=== PATIENT | female | born 1980 | race Caucasian/White ===

== ENCOUNTER 2025-05-30 18:53 | Emergency (ER) | payer BC, SELFPAY ==
--- OUTSIDE RECORDS SUMMARY | 2025-05-30 18:56 | XMS_ITS | Encounter Summary ---
Author Organization [facility] Medical Group Address [address] [facility] [address] [place] [address] Care Team Providers Care Inspector And Clerk Name Role Phone Stanley Arizmendi MD Primary Care Provider [phone] Alberto Perdomo MD Unavailable [phone] Renan Blackwood MD Unavailable [phone] Chad Junior MD Unavailable [phone] Tay Lopez MD Unavailable [phone] Myah Adams MD Unavailable [phone] Rojas Pelletier DO Unavailable Jak Ledezma MD Unavailable Alberto Perdomo MD Unavailable [phone] Encounter Details Date Type Department Care Team (Late st Contact Info) Description 10/24/2016 Orders Only 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 us Historical Provider MD CV CARDIAC SERVICES PROCE DURES Final Result * CARDIOLOGY REPORT (10/24/2016) Anatomical Region Laterality Modality Other Narrative 10/24/2016 Ordered by an unspecified provider. Historical Provider CV CARDIAC SERVICES PROCE DURES Final Result documented in this encounter Visit Diagnoses Not on filedocumented in this encounter Care Teams Inspector And Clerk Relationship Specialty Start Date End Date Stanley Arizmendi MD [address] [facility] [address] [place] [address] PCP - General 02/10/13 Alberto Perdomo MD [address] [facility] 100 [place] [address] Referring Physician Psychiatry 08/29/20 Renan Blackwood MD [address] [place] [address] DR BOBBY Cabezas [facility] [address] [place] [address] Surgeon Orthopedic Surgery 08/29/20 Chad Junior MD [address] [facility] 301 [place], [place] [address] Referring Physician Obstetrics and Gynecology 08/09/21 Tay Lopez MD [address] [facility] [address] [place] [address] Consulting Physician Rheumatology 08/09/21 Myah Adams MD [address] [facility] 200 [place] [address] Referring Physician Neurology 08/09/21 [place] [address] [address] [place] [address] Consulting Physician Gastroenterology 08/09/21 [place] [address] [address] [place] [address] Consulting Physician Critical Care Med 08/09/21 Alberto Perdomo MD [address] [facility] 100 [place] [address] Referring Physician Psychiatry 08/09/21 02/05/22 documented as of this encounter
--- OUTSIDE RECORDS SUMMARY | 2025-05-30 18:56 | XMS_ITS | Encounter Summary ---
Author Organization [facility] Address [address] [place] [address] Phone Care Team Providers Care Trucker Name Role Phone KyleighStanley varela Jeanne CARRILLO Primary Care Provider [phone] Alberto Perdomo MD Unavailable [phone] Renan Blackwood MD Unavailable Chad Junior MD Unavailable [phone] Tay Lopez MD Unavailable [phone] Myah Adams MD Unavailable [phone] Rojas Pelletier DO Unavailable [phone] Jak Ledezma MD Unavailable Alberto Perdomo MD Unavailable [phone] Encounter Details Date Type Department Care Team (Late st Contact Info) Description 01/25/2022 Orders Only [facility] [address] [place] [address] Scanning, Provider Social History Tobacco Use Types Packs/Day Years Used Date Smoking Tobacco: Former Cigarettes 0.5 23.6 1 99 - 01/2019 E-cigarettes Smokeless Tobacco: Never Alcohol Use Standard Drinks/Week Comments Yes 0 (1 standard drink = 0.6 oz pur e alcohol) 1-2 drinks per month Comments Unknown Sex and Gender Information Value Date Recorded Sex Assigned at Not on file 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 Author CCM Chronic Pain Care Plan Chronic Care Management Worsening( 9:43 AM CHOP SAW OPERATOR) Cristina Tejeda RN Note: Problem: Chronic Pain Goals: 1. Minimize further functional decline 2. Maximize quality of life 3. Control pain Strategies: - Activity/exercise program recommendation - Conservative stepwise pain medicine strategy with multi-disciplinary approach - Recommend healthy lifestyle strategies and compensatory methods as needed documented as of this encounter Procedures Procedure Name Priority Date/Time Associated Diagnosis Comments SCAN - LABS 01/25/2022 documented in this encounter Results * SCAN - LABS (01/25/2022) us Provider Scanning Final Result documented in this encounter Visit Diagnoses Not on filedocumented in this encounter Care Teams Trucker Relationship Specialty Start Date End Date Stanley Arizmendi MD [address] [facility] [address] [place] [address] PCP - General 02/10/13 Alberto Perdomo MD [address] [facility] 100 [place] [address] Referring Physician Psychiatry 08/29/20 Renan Blackwood MD [address] [place] [address] [address] BOBBY Cabezas [facility] [address] [place] [address] Surgeon Orthopedic Surgery 08/29/20 Chda Junior MD [address] [facility] 301 [place], [place] [address] Referring Physician Obstetrics and Gynecology 08/09/21 Tay Lopez MD [address] [facility] [address] [place] [address] Consulting Physician Rheumatology 08/09/21 Myah Adams MD [address] [facility] 200 [place] [address] Referring Physician Neurology 08/09/21 [place] [address] [address] [place] [address] Consulting Physician Gastroenterology 08/09/21 [place] [address] [address] [place] [address] Consulting Physician Critical Care Med 08/09/21 Alberto Perdomo MD [address] [facility] 100 [place] [address] Referring Physician Psychiatry 08/09/21 02/05/22 documented as of this encounter
--- OUTSIDE RECORDS SUMMARY | 2025-05-30 18:56 | XMS_ITS | Encounter Summary ---
Author Organization [facility] Address [address] [place] [address] Phone Care Team Providers Care Travel Guide Name Role Phone KyleighStanley varela Jeanne CARRILLO Primary Care Provider [phone] Alberto Perdomo MD Unavailable [phone] Renan Blackwood MD Unavailable Chad Junior MD Unavailable Tay Lopez MD Unavailable [phone] Myah Adams MD Unavailable [phone] Rojas Pelletier DO Unavailable Jak Ledezma MD Unavailable Alberto Perdomo MD Unavailable [phone] Encounter Details Date Type Department Care Team (Late st Contact Info) Description 07/10/2021 Orders Only [facility] [address] [place] [address] Scanning, Provider Social History Tobacco Use Types Packs/Day Years Used Date Smoking Tobacco: Former Cigarettes 0.5 23.6 1 - 01/2019 E-cigarettes Smokeless Tobacco: Never Alcohol Use Standard Drinks/Week Comments Yes 0 (1 standard drink = 0.6 oz pur e alcohol) 1-2 drinks per month Comments Unknown Sex and Gender Information Value Date Recorded Sex Assigned at Not on file 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 Author CCM Chronic Pain Care Plan Chronic Care Management Worsening( 9:43 AM HVAC SHEET METAL INSTALLER) Cristina Tejeda RN Note: Problem: Chronic Pain Goals: 1. Minimize further functional decline 2. Maximize quality of life 3. Control pain Strategies: - Activity/exercise program recommendation - Conservative stepwise pain medicine strategy with multi-disciplinary approach - Recommend healthy lifestyle strategies and compensatory methods as needed documented as of this encounter Procedures Procedure Name Priority Date/Time Associated Diagnosis Comments GI - RESULT 07/10/2021 documented in this encounter Results * GI - RESULT (07/10/2021) Anatomical Region Laterality Modality Other us Provider Scanning Final Result documented in this encounter Visit Diagnoses Not on filedocumented in this encounter Care Teams Travel Guide Relationship Specialty Start Date End Date Stanley Arizmendi MD [address] [place] [address] PCP - General 02/10/13 Alberto Perdomo MD [address] [facility] 100 [place] [address] Referring Physician Psychiatry 08/29/20 Renan Blackwood MD [address] [facility] [address] BOBBY Cabezas [facility] 130 [place] [address] Surgeon Orthopedic Surgery 08/29/20 Chad Junior MD [address] [facility] [address] [place] [address] Referring Physician Obstetrics and Gynecology 08/09/21 Tay Lopez MD [address] [facility] 113 [place] [address] Consulting Physician Rheumatology 08/09/21 Myah Adams MD [address] [facility] 200 [place] [address] Referring Physician Neurology 08/09/21 [place] [address] [address] [place] [address] Consulting Physician Gastroenterology 08/09/21 [place] [address] [address] [place] [address] Consulting Physician Critical Care Med 08/09/21 Alberto Perdomo MD [address] [facility] 100 [place] [address] Referring Physician Psychiatry 08/09/21 02/05/22 documented as of this encounter
--- OUTSIDE RECORDS SUMMARY | 2025-05-30 18:56 | XMS_ITS | Encounter Summary ---
Author Organization [facility] Health Address [address] [place] [address] Care Team Providers Care Admissions Supervisor Name Role Phone Kyleigh Stanley Angel MD Primary Care Provider [phone] Myah Adams MD Unavailable [phone] Jak Ledezma MD Unavailable Encounter Details Date Type Department Care Team (Late st Contact Info) Description 01/19/2025 Lab Requisition [facility] - DermPath Lab [address] [place] [phone] [place] [address] [address] Social History Tobacco Use Types Packs/Day Years Used Date Smoking Tobacco: Former Cigarettes 0.5 20.1 1 07/20/1998 - 07/01/2019 Smokeless Tobacco: Never Alcohol Use Standard Drinks/Week Comments Not Currently 1 (1 standard drink = 0.6 oz pur e alcohol) Comments No Sex and Gender Information Value Date Recorded Sex Assigned at Female 04/12/2023 4:27 PM CDT Legal Sex Female 6:19 PM PUBLIC RELATIONS MANAGER Gender Identity Female 09/15/2020 7:37 AM CDT Sexual Orientation Straight 09/15/2020 7: 37 AM CDT 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 Not on file Not on file documented as of this encounter Plan of Treatment Upcoming Encounters Date Type Department Care Team (Late st Contact Info) Description 11/04/2025 2:00 PM CDT Office Visit [facility] [address] [place] [address] Phuc Ale Ese, PAVING INSPECTOR-URGENT CARE PHYSICIAN ASSISTANT [address] [place] [phone] 05/24/2026 2:00 PM PUBLIC RELATIONS MANAGER Office Visit [facility] - Pulmonology [address] [facility] [address] [place] [address] [place] [address] [facility] [address] [place] [address] documented as of this encounter Procedures Procedure Name Priority Date/Time Associated Diagnosis Comments DERMATOPATHOLOGY Routine 01/18/2025 12:0 0 AM CDT documented in this encounter Results * DERMATOPATHOLOGY (01/18/2025 12:00 AM CDT) Case Report Dermatopathology Report Case: [id number] Authorizing Provider: Delmar Covington MD Collected: 01/18/2025 12:00 AM Ordering Location: [facility] - Received: 01/20/2025 06:49 AM DermPath Lab Pathologist: Ese Chris MD Specimen: Skin, right dorsal hand 6:25 PM CDT DERMATOPATHOLOGY LABORATORY Final Diagnosis Specimen A. SKIN, right dorsal hand: CHRONIC SPONGIOTIC DERMATITIS (L30.8) (see microscopic description and comment) 5 6:25 PM CDT DERMATOPATHOLOGY LABORATORY at 1829 CDT Clinical History Rash; R/O Eczema, Contact Dermatitis, Connective Tissue Disease 5 6:25 PM CDT DERMATOPATHOLOGY LABORATORY Gross Description Specimen A: Received is one formalin filled container labeled with the patient's name and designated right dorsal hand. The specimen consists of a punch biopsy measuring 4x4x2 mm. Jar 0. 5 6:25 PM CDT DERMATOPATHOLOGY LABORATORY Microscopic Description Specimen A. SKIN, right dorsal hand: There is focal parakeratosis and mild spongiosis of the epidermis. In the dermis there is a mainly superficial perivascular lymphoid infiltrate. Grocott's methenamine silver (GMS) stain fails to highlight fungal elements in the available sections. COMMENT: These histological findings can be seen in an eczematous dermatitis. 6:25 PM CDT DERMATOPATHOLOGY LABORATORY Disclaimer An external and internal positive and negative controls are appropriate for the histochemical, immunohistochemical and immunofluorescence stain(s) in this case (if any), except where stated explicitly. The performance characteristics of the stain(s) cited in this report were developed and its performance characteristic determined by the Dermatopathology Laboratory at [facility], directed by Dr. Aaliyah Chris. These tests need not be, and therefore are not, approved by the [place] Food and Drug Administration. The tests are used for clinical purposes. Billing Codes Specimen Charges Stain Charges 57025 1 36803 1 6:25 PM CDT DERMATOPATHOLOGY LABORATORY Embedded Images 6:25 PM CDT DERMATOPATHOLOGY LABORATORY Pathology/Cytolog y TISSUE SPECIMEN FROM SKIN / Unknown 01/18/2025 01/20/2025 6:49 AM CDT Delmar Covington MD LAB - PATHOLOGY/CYTOLOGY O RDERABLES Final Result DERMATOPATHOLOGY LABORATORY [facility] - Department of Dermatology [facility] Medicine [address] [place] [address], [address] [phone] documented in this encounter Visit Diagnoses Not on filedocumented in this encounter Care Teams Admissions Supervisor Relationship Specialty Start Date End Date Stanley Arizmendi MD [address] [place] [phone] PCP - General 05/03/11 Myah Adams MD [address] [place] [address] Neurologist Neurology 11/08/20 [place] [address] [facility] [address] [place] [address] Roustabout Pusher Pulmonary Disease 01/03/21 documented as of this encounter
--- OUTSIDE RECORDS SUMMARY | 2025-05-30 18:56 | XMS_ITS | Clinical Summary ---
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 Laboratories [place] [id number] * Screening Mammogram Bilateral W Constantino (10/06/2024 10:39 AM CDT) Anatomical Region Laterality Modality Breast Bilateral Mammography 10/06/2024 11:2 5 AM CDT Impressions 10/06/2024 11:25 AM CDT There is no mammographic evidence of malignancy. A 1 year screening mammogram is recommended. BI-RADS: 1 - Negative. The patient has been or will be contacted. The patient will be entered into a reminder system with a target due date of 1 year for her next mammogram. Electronically signed by: Yoan Stanley M.D. Narrative 10/06/2024 11:25 AM CDT EXAMINATION: SCREENING MAMMOGRAM BILATERAL W CONSTANTINO ORDERING HEALTHCARE PROVIDER: STANLEY ARIZMENDI HISTORY: Routine screening mammography. COMPARISON: 08/27/2023 TECHNIQUE: CC and MLO views of the bilateral breasts were obtained with digital technique using breast tomosynthesis with C view. Computer aided detection was utilized. FINDINGS: DENSITY: There are scattered areas of fibroglandular density. BREASTS: A loop recorder is present on the left. There are no suspicious masses, suspicious calcifications, or other suspicious findings in either breast. There has been no suspicious interval change. Stanley Arizmendi MD IMG MAMMO PROCEDURES Final Result * Serum Hepatitis panel (08/04/2013 7:47 AM SUPERVISOR FELTING) HBV surface ag Negative Negative HISTO RICAL RESULTS HBV core ab, IgM Negative Negative HISTORICAL RESULTS HCV ab Negative Negative HISTORICAL RESULTS HAV ab, IgM Negative Negative HISTORIC AL RESULTS Serum 08/04/2013 7:47 AM SUPERVISOR FELTING Stanley Arizmendi MD LAB BLOOD ORDERABLES Final Result HISTORICAL RESULTS from Last 3 Months or Most Recently Relevant to Health Maintenance Insurance [facility] [id number] [facility] [id number] [facility] Advance Directives For more information, please contact: [phone] * Full Code (Latest Code Status on File) Date Activated Date Inactivated Comments 12/11/2019 11:15 AM 12/11/2019 5:06 PM Care Teams Golf Course Designer Relationship Specialty Start Date End Date Stanley Arizmendi MD [address] [place] [address] PCP - General 02/10/13 Alberto Perdomo MD [address] [facility] 100 [place] [address] Referring Physician Psychiatry 08/29/20 Renan Blackwood MD [address] [place] [address] DR BOBBY Cabezas [facility] [address] [place] [address] Surgeon Orthopedic Surgery 08/29/20 Chad Junior MD [address] [facility] [address] [place] [address] Referring Physician Obstetrics and Gynecology 08/09/21 Tay Lopez MD [address] [facility] [address] [place] [address] Consulting Physician Rheumatology 08/09/21 Myah Adams MD [address] [facility] [place] 200 [place], [place] [id number] Referring Physician Neurology 08/09/21 [place] [address] [address] [place] [id number] Consulting Physician Gastroenterology 08/09/21 [place] [address] [place] [address] Consulting Physician Critical Care Med 08/09/21
--- OUTSIDE RECORDS SUMMARY | 2025-05-30 18:56 | XMS_ITS | Encounter Summary ---
Author Organization [facility] Healthcare Address [address] [place] [address] Care Team Providers Care Document Control Clerk Name Role Phone KyleighStanley MD Primary Care Provider [phone] Alberto Perdomo MD Unavailable [phone] Renan Blackwood MD Unavailable [phone] Chad Junior MD Unavailable [phone] Tay Lopez MD Unavailable [phone] Myah Adams MD Unavailable [phone] Rojas Pelletier DO Unavailable Jak Ledezma MD Unavailable Encounter Details Date Type Department Care Team (Late st Contact Info) Description 09/18/2022 Telephone [facility] [address] [place] [address] Tanesha Sosa RT Social History Tobacco Use Types Packs/Day Years Used Date Smoking Tobacco: Former Cigarettes 0.5 23.6 1 - 01/2019 E-cigarettes Smokeless Tobacco: Never Alcohol Use Standard Drinks/Week Comments Yes 0 (1 standard drink = 0.6 oz pur e alcohol) 1-2 drinks per month PHQ-2 Answer Date Recorded PHQ-2 Total Score (If total score is 3 or more points, staff should administer the PHQ-9) 0 02/06/2022 Comments Unknown Sex and Gender Information Value Date Recorded Sex Assigned at Not on file Legal Sex Female 12:35 PM VACUUM WORKER Gender Identity Not on file Sexual Orientation Straight 08/24/2019 7: 38 PM VACUUM WORKER documented as of this encounter Plan of Treatment Not on file documented as of this encounter Goals Goal Patient Goal Type Associated Problems Recent Progress Patient-Stated? Author CCM Chronic Pain Care Plan Chronic Care Management Worsening( 9:43 AM VACUUM WORKER) Cristina Tejeda, RN Note: Problem: Chronic Pain Goals: 1. Minimize further functional decline 2. Maximize quality of life 3. Control pain Strategies: - Activity/exercise program recommendation - Conservative stepwise pain medicine strategy with multi-disciplinary approach - Recommend healthy lifestyle strategies and compensatory methods as needed documented as of this encounter Visit Diagnoses Not on filedocumented in this encounter Care Teams Document Control Clerk Relationship Specialty Start Date End Date Stanley Arizmendi MD [address] [facility] [address] [place] [address] PCP - General 02/10/13 Alberto Perdomo MD [address] [facility] 100 [place] [address] Referring Physician Psychiatry 08/29/20 Renan Blackwood MD [address] [place] [address] DR ROSALES [address] [facility] [address] [place] [address] Surgeon Orthopedic Surgery 08/29/20 Chad Junior MD [address] [facility] [address] [place], [place] [id number] Referring Physician Obstetrics and Gynecology 08/09/21 Tay Lopez MD 34[address] [facility] [address] [place] [address] Consulting Physician Rheumatology 08/09/21 Myah Adams MD [address] [facility] [facility] [address] [place], [place] [phone] Referring Physician Neurology 08/09/21 [place] [address] [place] [id number] Consulting Physician Gastroenterology 08/09/21 [place] [address] [place] [address] Consulting Physician Critical Care Med 08/09/21 documented as of this encounter
--- OUTSIDE RECORDS SUMMARY | 2025-05-30 18:56 | XMS_ITS | Clinical Summary ---
Author Organization [facility] Address [address] [place] [address] Phone Care Team Providers Care Search Director Name Role Phone Kyleigh Stanley Angel MD Primary Care Provider [phone] Servando Guido MD Unavailable [phone] Allergies Active Allergy Reactions Criticality Noted Date Comments Penicillins Swelling High 10/23/2016 Sulfa Antibiotics Anaphylaxis,Rash,Oth er (see Comments) High 10/23/2016 Patient's eyes swollen shut, blistering, difficulty breathing. Vancomycin Other (see Comments) High 12/25/2021 Guo-Dionte Syndrome Medications ALPRAZolam (XANAX) 0.5 MG Tablet Take 0.5 mg by mouth every morning. Active ALPRAZolam (XANAX) 1 MG Tablet Take 1 mg by mouth nightly as needed. Active famotidine (PEPCID) 20 MG Tablet Take 1 Tab by mouth 2 times daily as needed. 30 Tab 0 7 Active Additional Information Patient taking differently:20 mg Oral2 TIMES DAILY, Reported on 01/14/2024 acetaminophen (TYLENOL) 500 MG Tablet Take 500 mg by mouth every 4 hours as needed. Active buPROPion (WELLBUTRIN) 300 MG TABLET SR 24 HR XL tablet Take 300 mg by mouth every morning. Active cetirizine (ZyrTEC) 10 MG Tablet Take 20 mg by mouth 2 times daily. Active cloNIDine (CATAPRES) 0.1 MG Tablet Take 0.1 mg by mouth 2 times daily. Active diclofenac (VOLTAREN) 75 MG Tablet Delayed Response Take 75 mg by mouth 3 times daily. Active fluticasone (FLONASE) 50 MCG/ACT Suspension 1 [place] by Nasal route daily. Use in each nostril as directed. Active FOLIC ACID PO Take by mouth. A ctive gabapentin (NEURONTIN) 100 MG Capsule Take 100 mg by mouth 2 times daily. Active gabapentin (NEURONTIN) 600 MG Tablet Take 600 mg by mouth nightly. Active golimumab (SIMPONI ARIA) 50 MG/4ML Solution by Intravenous route. Every two weeks Active hydroxychloroqu ine (PLAQUENIL) 200 MG Tablet Take 400 mg by mouth daily. 2 tabs daily Active leflunomide (ARAVA) 10 MG Tablet Take 10 mg by mouth daily. Active methotrexate, PF, (OTREXUP) 25 MG/0.4ML Solution Auto-injector 25 mg by Subcutaneous route once a week. Chemo: Medication requires special safe handling and disposal. Active metoclopramide (REGLAN) 10 MG Tablet Take 10 mg by mouth daily. PRN Active mirtazapine (REMERON) 30 MG Tablet Take 30 mg by mouth nightly. Active Multiple Vitamin (MULTIVITAMIN PO) Take by mouth. Activ e NIFEdipine CR (PROCARDIA-XL) 60 MG TABLET SR 24 HR Take 60 mg by mouth daily. Active olopatadine (Pataday) 0.2 % Solution Place 1 Drop in affected eye(s) daily. Active predniSONE (DELTASONE) 5 MG Tablet Take 5 mg by mouth daily. 3 tabs daily Active propranolol (INDERAL) 10 MG Tablet Take 10 mg by mouth 2 times daily. Active pyridostigmine (MESTINON) 60 MG Tablet Take 60 mg by mouth 3 times daily. Active traMADol (ULTRAM) 50 MG Tablet Take 50 mg by mouth 3 times daily. 2 tablets three times daily Active Viloxazine HCl ER (Qelbree) 200 MG CAPSULE SR 24 HR Take by mouth. Activ e Family History Medical History Relation Name Comments Other-comment Father als Anemia Mother Hypertension Mother Other-comment Mother spondylosis Relation Name Status Comments Father Mother Alive Social History Tobacco Use Types Packs/Day Years Used Date Smoking Tobacco: Former Cigarettes Alcohol Use Standard Drinks/Week Comments Yes 0 (1 standard drink = 0.6 oz pur e alcohol) rarely Comments No Sex and Gender Information Value Date Recorded Sex Assigned at Not on file Legal Sex Female 9:20 PM CDT Gender Identity Not on file Sexual Orientation Not on file Last Filed Vital Signs Vital Sign Reading Time Taken Comments Blood Pressure 110/80 01/14/2024 3:07 PM CDT Pulse 71 01/14/2024 3:07 PM CDT Temperature 36.4 C (97.5 F) 01/14/2024 3:07 PM CDT Respiratory Rate 17 01/14/2024 3:07 PM CDT Oxygen Saturation 95% 01/14/2024 3:07 PM CDT Inhaled Oxygen Concentration - - Weight 77.5 kg (170 lb 12.8 oz) 01/14/2024 3:07 PM CDT Height 167.6 cm (5' 6) 01/14/2024 3:07 PM CDT Body Mass Index 27.57 01/14/2024 3:07 PM CDT Plan of Treatment Health Maintenance Due Date Last Done Comments Hepatitis C Virus (HCV) Screening 1981 TdaP Immunization 1981 SARS-COV-2 Immunization (#1) 1986 Varicella Immunization (1 of 2 - 13+ 2-dose series) 1994 Pap Smear 2002 Human Papillomavirus (HPV) Immunization (1 - Risk 3-dose SCDM series) 2008 Cervical Cancer Screening (CCS) 2011 HPV/Cotest 2011 Mammogram 08/27/2024 08/27/2023 Influenza Immunization (#1) 03/01/202503/31, 03/16/2016, 04/25/2015 Respiratory Syncytial Virus (RSV) Immunization (Adult) (1 - 1-dose 75+ series) 2056 DTaP/Tdap/Td Immunization Discontinued 1995, 10/05/1986, 09/05/1985, Additional history exists Hepatitis B Immunization Completed 999, 06/16/1998, 04/26/1998 Discussion re Starting/Frequency of Mammograms Completed 08/27/2023 Meningococcal Immunization (ACWY) Aged Out No longer eligible based on patient's age to complete this topic Pneumococcal Immunization Combined Aged Out No longer eligible based on patient's age to complete this topic Rotavirus Immunization Aged Out No lo nger eligible based on patient's age to complete this topic Insurance [facility] Care Teams Search Director Relationship Specialty Start Date End Date Stanley Arizmendi MD [address] [place] [address] PCP - General Internal Medicine 10/25/15 Servando Guido MD [address] [facility] [place] [address] Consulting Physician Neurology 01/14/24
--- OUTSIDE RECORDS SUMMARY | 2025-05-30 18:56 | XMS_ITS | Encounter Summary ---
Author Organization [facility] Address [address] [place] [address] Phone Care Team Providers Care Spreader Operator Name Role Phone KyleighStanley varela Jeanne CARRILLO Primary Care Provider [phone] Alberto Perdomo MD Unavailable [phone] Renan Blackwood MD Unavailable Chad Junior MD Unavailable Tay Lopez MD Unavailable [phone] Myah Adams MD Unavailable Rojas Pelletier DO Unavailable Jak Ledezma MD Unavailable Alberto Perdomo MD Unavailable [phone] Encounter Details Date Type Department Care Team (Late st Contact Info) Description 12/21/2020 Orders Only [facility] [address] [place] [address] Scanning, Provider Social History Tobacco [...] on file Legal Sex Female 12:35 PM PAVER LAYER Gender Identity Not on file Sexual Orientation Straight 08/24/2019 7: 38 PM PAVER LAYER documented as of this encounter Plan of Treatment Not on file documented as of this encounter Goals Goal Patient Goal Type Associated Problems Recent Progress Patient-Stated? Author CCM Chronic Pain Care Plan Chronic Care Management Worsening( 9:43 AM PAVER LAYER) Cristina Tejeda RN Note: Problem: Chronic Pain Goals: 1. Minimize further functional decline 2. Maximize quality of life 3. Control pain Strategies: - Activity/exercise program recommendation - Conservative stepwise pain medicine strategy with multi-disciplinary approach - Recommend healthy lifestyle strategies and compensatory methods as needed documented as of this encounter Procedures Procedure Name Priority Date/Time Associated Diagnosis Comments CARDIOLOGY DOCUMENT SCAN 12/21/2020 documented in this encounter Results * SCAN - CARDIOLOGY (12/21/2020) Anatomical Region Laterality Modality Other us Provider Scanning CV CARDIAC SERVICES PROCEDURES Final Result documented in this encounter Visit Diagnoses Not on filedocumented in this encounter Care Teams Spreader Operator Relationship Specialty Start Date End Date Stanley Arizmendi MD [address] [facility] [address] [place] [address] PCP - General 02/10/13 Alberto Perdomo MD [address] [facility] [address] [place] [address] Referring Physician Psychiatry 08/29/20 Renan Blackwood MD [address] [facility] [address] BOBBY Cabezas [facility] [address] [place] [address] Surgeon Orthopedic Surgery 08/29/20 Chad Junior MD [address] [facility] [address] [place], [place] [id number] Referring Physician Obstetrics and Gynecology 08/09/21 Tay Lopez MD [address] [facility] [address] [place] [address] Consulting Physician Rheumatology 08/09/21 Myah Adams MD [address] [facility] [address] [place] [address] Referring Physician Neurology 08/09/21 [place] [address] [address] [place] [phone] Consulting Physician Gastroenterology 08/09/21 [place] [address] [facility] [address] [place] [address] Consulting Physician Critical Care Med 08/09/21 Alberto Perdomo MD [address] [facility] [address] [place] [address] Referring Physician Psychiatry 08/09/21 02/05/22 documented as of this encounter
--- OUTSIDE RECORDS SUMMARY | 2025-05-30 18:57 | XMS_ITS | Clinical Summary ---
Author Organization [facility] [employer] Address [address] [place] [place] [address] Care Team Providers Care Diamond Expert Name Role Phone Kyleigh Stanley Angel MD Primary Care Provider [phone] Myah Adams MD Unavailable [phone] Jak Ledezma MD Unavailable Source Comments [facility],non-owned Affiliates and Associated Physician Practices is amultiple site organization consisting of ambulatory clinics and hospital sitesin [place], [place], [place] and [place]. This disclosure is being madepursuant to the Care Everywhere program and may not contain all information available regarding this patient. Last updated 18.[facility] Allergies Active Allergy Reactions Criticality Noted Date Comments Bactrim Ds Anaphylaxis,Dizzines s,Itching,Palpitat ions,Rash,Shortness of Breath,Skin Reactions,Swelling,Systemic,Urticaria High 01/12/2022 Clindamycin Itching Low 02/11/2012 ., . Penicillins Skin Reactions,Swelling High 11/13/2011 Sulfa Drugs Rash High 11/13/2011 Vancomycin Skin Reactions Medium 10/07/2012 Medications * This document contains information received from the source organization and may not represent a complete record from that organization. * Be aware that medications may not be up to date on this document. Alwaysverify current medications with the patient. ALPRAZolam (XANAX) 0.5 MG tablet Take 1 (one) tablet by mouth 0.5 mg in AM and 0.5 mg at noon and 1 mg bedtime Active cetirizine (ZYRTEC ALLERGY) 10 MG gel capsule Take 2 (two) capsules by mouth 2 times daily Active cloNIDine (CATAPRES) 0.1 MG tablet 1.5 (one and one-half) tablets 2 times daily 0 Active folic acid (FOLVITE) 1 MG tablet Take 1 (one) tablet by mouth once daily 1 Active gabapentin (NEURONTIN) 100 MG capsule 1 (one) capsule 2 times daily 1 Active gabapentin (NEURONTIN) 300 MG capsule 2 (two) capsules at bedtime 1 Active hydroxychloroq uine (PLAQUENIL) 200 MG tablet 1 (one) tablet 2 times daily 1 Active lifitegrast (XIIDRA) 5 % opthalmic solution 2 times daily 1 Active mirtazapine (REMERON) 30 MG tablet Take 1 (one) tablet by mouth every evening 1 Active traMADol (ULTRAM) 50 MG tablet 1 (one) tablet to 2 (two) tablets 3 times daily as needed 1 Active acetaminophen (TYLENOL) 500 MG tablet Take 2 (two) tablets by mouth 3 times daily Maximum allowable Acetaminophen amount = 4 Grams (4000 mg) / 24 hours. Active esomeprazole (NEXIUM) 40 MG capsule Take 1 (one) capsule by mouth daily before breakfast Active fluticasone propionate (FLONASE) 50 MCG/ACT nasal spray [place] 2 (two) sprays into each nostril once daily Active multivitamin daily tablet Take 1 (one) tablet by mouth daily with food Active predniSONE (DELTASONE) 5 MG tablet ONE TO THREE TABELTS BY MOUTH DAILY DIRECTED BY PHYSICIAN 1 Active leflunomide (ARAVA) 10 MG tablet Take 1 (one) tablet by mouth at bedtime 2 Active famotidine (Pepcid) 20 MG tablet Take 1 (one) tablet by mouth 2 times daily 2 Active B-D INS SYR ULTRAFINE 1CC/30G 30G X 1/2 1 ML MISC as needed 3 Active Methotrexate Sodium (methotrexate, PF,) 50 MG/2ML injection 1 mL every 7 days (once a week) 2 Active mupirocin (Bactroban) 2 % ointment as needed 2 Active NIFEdipine CR osmotic 24hr (Procardia-XL) 60 MG tablet at bedtime 3 Active olopatadine (Pataday) 0.2 % ophthalmic solution 1 (one) drop once daily Active diclofenac sodium EC (Voltaren) 75 MG tablet 1 (one) tablet 2 times daily 3 Active metoclopramide (Reglan) 10 MG tablet 1 (one) tablet once daily as needed 3 Active Golimumab (SIMPONI ARIA IV) as directed 1 Active triamcinolone acetonide (Kenalog) 0.1 % ointment Apply to affected area 3 times daily 4 Active pyRIDostigmine (Mestinon) 60 MG tablet TAKE ONE AND a HALF (1 & 1/2) (ONE AND ONE-HALF) TABLETS BY MOUTH THREE (3) TIMES DAILY 405 tablet 3 4 Active propranolol (Inderal) 10 MG tabletIndicati ons:Postural dizziness TAKE ONE (1) (ONE) TABLET BY MOUTH TWO (2) TIMES DAILY 180 tablet 3 5 Active Cromolyn Sodium 100 MG/5ML Take 10 mL by mouth 2 times daily 500 mL 11 5 Active buPROPion SR 12hr (Wellbutrin-SR ) 150 MG tablet Take 1 (one) tablet by mouth 2 times daily Active colestipol (Colestid) 1 GM tablet Take 1 (one) tablet by mouth 2 times daily 5 Active guanFACINE (Tenex) 1 MG tablet Take 1 (one) tablet by mouth at bedtime 90 tablet 4 5 Active tacrolimus (Protopic) 0.1 % ointment Apply to affected area 2 times daily 5 Active Methylphenidat e HCl ER, LA, 60 MG 5 Active vitamin D3 (Cholecalcifer ol) 25 MCG (1000 UNITS) tablet Take 1 (one) tablet by mouth 2 times daily Active cyanocobalamin (Vitamin B-12) injection Inject 1,000 (one thousand) mcg into muscle every 30 days Active Active Problems Problem Noted Date Diagnosed Date Cigarette nicotine dependence in remission 05/26 Postural orthostatic tachycardia syndrome (POTS) 05/26/2024 Mixed connective tissue disease 12/10/2023 Systemic lupus erythematosus 12/10/2023 Pleuritic chest pain 09/17/2023 Allergic rhinitis 09/17/2023 Sjogren's syndrome 05/05/2021 Small fiber neuropathy 05/05/2021 Paroxysmal atrial fibrillation 04/05/2021 Generalized anxiety disorder 04/14/2015 Major depressive disorder, recurrent, moderate 0 09/20/2014 Other diseases of vocal cords 10/08/2012 Other allergy status, other than to drugs and biological substances 10/08/2012 CRPS (complex regional pain syndrome type I) ADHD Mood disorder Ankylosing spondylitis RA (rheumatoid arthritis) Dyspnea on exertion Iron deficiency anemia Encounters Date Type Department Care Team Description 05/25/2025 2:00 PM PAYROLL CONSULTANT Office Visit [facility] - Pulmonology [id number] [address] Atif Dalton DO Mixed connective tissue disease (HCC) (Primary Dx); Systemic lupus erythematosus, unspecified SLE type, unspecified organ involvement status (HCC); Pleuritic chest pain; Allergic rhinitis, unspecified seasonality, unspecified trigger; Postural orthostatic tachycardia syndrome (POTS); Cigarette nicotine dependence in remission from Last 3 Months Immunizations Immunization Administration Dates Next Due INFLUENZA VACCINE, TRIV. (AF LURIA, FLUZONE TRIVALENT; 6MO+) (IIV3) 03/16/2016,04/25/2015 DTP 10/05/1986,,12/04/1982,1981,1981 HEP B VACCINE, PED/ADOL 11/17/1998,06/16/1998, INFLUENZA VACCINE, QUADR. (F LUZONE; FLULAVAL; FLUARIX; AFLURIA QUADRIVALENT; 6MO+), 0.5 ML (IIV4) 04/15/2020 INFLUENZA VACCINE, TRIV. (FL UZONE; FLULAVAL; FLUARIX; AFLURIA TRIVALENT; 6MO+), 0.5 ML (IIV3) 05/26/2024 MMR 11/13/1990,09/15/1982 POLIO OPV 10/05/1986, 4,1981,1981 Td (Adult), 2 Lf Tetanus Tox oid, Adsorbed, Pf 01/07/1996 Family History Medical History Relation Name Comments Ankylosing Spondylitis Brother 1 Other - Cardiac Daughter POTS CAD (Coronary Artery Disease) Father ALS,RA Diabetes - Type 2 Father Hypertension Father Ulcerative Colitis Father High Cholesterol Mother Hypertension Mother COPD Cancer Paternal Grandfather Other Sister 1 UC,HTN Allergy (Severe) Neg Hx CVA Neg Hx Cancer - Breast Neg Hx Cancer - Skin, Melanoma Neg Hx Cancer - Skin, Non Melanoma Neg Hx Eczema Neg Hx Hemophilia Neg Hx Psoriasis Neg Hx Rashes/Skin Problems Neg Hx Relation Name Status Comments Brother 1 Alive Brother 2 Alive Brother 3 Alive Daughter Father Maternal Grandfather Maternal Grandmother Mother Alive Paternal Grandfather Paternal Grandmother Sister 1 Alive Sister 2 Alive Sister 3 Alive Sister 4 Alive Social History Tobacco Use Types Packs/Day Years Used Date Smoking Tobacco: Former Cigarettes 0.5 20.1 1 07/20/1998 - 07/01/2019 Smokeless Tobacco: Never Tobacco Cessation:Counseling Given: Not Answered Alcohol Use Standard Drinks/Week Comments Not Currently 1 (1 standard drink = 0.6 oz pur e alcohol) Comments No Sex and Gender Information Value Date Recorded Sex Assigned at Female 04/12/2023 4:27 PM CDT Legal Sex Female 6:19 PM PAYROLL CONSULTANT Gender Identity Female 09/15/2020 7:37 AM CDT Sexual Orientation Straight 09/15/2020 7: 37 AM CDT 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 Not on file Not on file Last Filed Vital Signs Vital Sign Reading Time Taken Comments Blood Pressure 108/78 05/25/2025 2:08 PM PAYROLL CONSULTANT Pulse 75 05/25/2025 2:08 PM PAYROLL CONSULTANT Temperature 36.5 C (97.7 F) 05/25/2025 2:08 PM PAYROLL CONSULTANT Respiratory Rate 19 05/25/2025 2:08 PM PAYROLL CONSULTANT Oxygen Saturation 98% 05/25/2025 2:08 PM PAYROLL CONSULTANT Inhaled Oxygen Concentration - - Weight 65.3 kg (144 lb) 05/25/2025 2:08 PM PAYROLL CONSULTANT Height 167.6 cm (5' 6) 05/25/2025 2:08 PM PAYROLL CONSULTANT Body Mass Index 23.24 05/25/2025 2:08 PM PAYROLL CONSULTANT Plan of Treatment Upcoming Encounters Date Type Department Care Team (Late st Contact Info) Description 11/04/2025 2:00 PM CDT Office Visit [facility] [address] [place], [place] [id number] Ale Friend, [employer] [address] [place] [id number] 05/24/2026 2:00 PM PAYROLL CONSULTANT Office Visit [facility] - Pulmonology [address] [facility] [address] [place] [address] [place] [address] [facility] [address] [place] [id number] Health Maintenance Due Date Last Done Comments LIPID TESTING 1981 COVID-19 VACCINE (#1) 1986 DTAP/TDAP/TD VACCINES (6 - Tdap) 01/08/1996 01/07/1996, 10/05/1986, 09/05/1985, Additional history exists HIV SCREENING 1996 Cervical Cancer Screening 2002 PAP SMEAR 2002 HPV VACCINE (1 - 3-dose SCDM series) 2008 PAP with HPV 2011 DEPRESSION SCREENING 07/01/2024 INFLUENZA VACCINE (#1) 2025 , 04/15/2020, 03/16/2016, Additional history exists MAMMOGRAM 10/06/2026 10/06/2024, 01/2025, 08/27/2023, Additional history exists ZOSTER VACCINE (1 of 2) 2031 HEPATITIS B VACCINE Completed 11/17/1998, 06/16/1998, 04/26/1998 HEPATITIS C SCREENING Completed 05/28/2011 HIB VACCINE Aged Out No longer eligi ble based on patient's age to complete this topic MENINGOCOCCAL (Group B) VACCINE SHARED DECISION-MAKING Aged Out No longer eligible based on patient's age to complete this topic MENINGOCOCCAL GROUPS A/C/Y/W VACCINE Aged Out No longer eligible based on patient's age to complete this topic PNEUMOCOCCAL VACCINE Aged Out No long er eligible based on patient's age to complete this topic Medical Devices Implanted Type Area Sour Bleaching Pleater Device Identifier Shelf Expiration Date Model / Serial / Lot Loop Recorder-3/08/2021 Implanted:Qt y: 1 on 09/20/2021 by Rio Ott MD Loop Recorder Chest [email or web address] [id number] / [id number] / Neuro Stimulator- Implanted:Qt y: 1 on 09/22/2021 by Rio Ott MD Neuro Stimulator Buttocks [employer] [id number] / [id number] / Neuro Stimulator- Implanted:Qt y: 1 on 09/22/2021 by Rio Ott MD Neuro Stimulator Spine Lumbar [employer] [id number] / [id number] / Neuro Stimulator- Implanted:Qt y: 1 on 09/22/2021 by Rio Ott MD Neuro Stimulator [employer] [id number] / [id number] / Procedures Procedure Name Priority Date/Time Associated Diagnosis Comments HEPATITIS C ANTIBODY Routine 05/28/2011 10:50 AM PAYROLL CONSULTANT from Last 3 Months or Most Recently Relevant to Health Maintenance Results * HEPATITIS C ANTIBODY (05/28/2011 10:50 AM PAYROLL CONSULTANT) [facility] Hepatitis C Antibody NEGATIVE NEGATIVE [facility] Comment: Anti-HCV screen indicates no serologic evidence of past or current infection with Hepatitis C Virus. 05/28/2011 10:5 0 AM PAYROLL CONSULTANT 05/28/2011 12:15 PM PAYROLL CONSULTANT us Danii Sky MD LAB - CHEMISTRY ORDERJac GAFFNEY Final Result [address] [phone] from Last 3 Months or Most Recently Relevant to Health Maintenance Insurance ANTHEM Care Teams Diamond Expert Relationship Specialty Start Date End Date Stanley Arizmendi MD [address] [phone] PCP - General 05/03/11 Myah Adams MD [address] [facility] [address] [place] [address] Neurologist Neurology 11/08/20 [place] [address] [facility] [address] [place] [address] Electric Shovel Operator Pulmonary Disease 01/03/21
--- OUTSIDE RECORDS SUMMARY | 2025-05-30 18:57 | XMS_ITS | Patient Health Record ---
Author Organization [facility] Address [address] [facility] [address] [place] [address] Care Team Providers Care Carpenter Form Name Role Phone Alycia Pritchard Unavailable [phone] Kyleigh CARRILLO, Stanley Unavailable Unavailable Reason For Referral No Information Medications Medication SIG (Take, Route, Frequency, Duration) Notes Start Date End Date Status LaMICtal - at bedtime oral *Pick strength-form from Medispan for eRX* Active Xanax 0.5 MG take 1 tablet in the morning Oral Active Wellbutrin XL 300 MG take 1 tablet (300 mg) by oral route once daily Oral 1 Active Tylenol 1000 mg tid prn - *Pick strength-form from GoPlaceItspan for eRX* Active Ibuprofen 800 MG take 1 tablet (800 mg) by oral route 3 times per day with food Oral 3 Active Flonase Allergy Relief 50 MCG/ACT inhale 1 spray (50 mcg) in each nostril by intranasal route once daily Nasal 1 Active cloNIDine 1.5 mg bid - *Pick strength-form from Medispan for eRX* Active Mestinon 60 MG take 1 tablet (60 mg) by oral route 3 times per day Oral 3 Active ZyrTEC Allergy 10 MG take 1 tablet (10 mg) by oral route once daily Oral 1 Active Adderall XR 20 MG take 1 capsule (20 mg) by oral route once daily in the morning upon awakening Oral 1 Active Xanax 1 MG take 1 tablet at noon Oral Active Neurontin 400 MG take 1 capsule (400 mg) by oral route 3 times per day Oral 3 Active Plan Of Treatment No Information Insurance Providers Payer Name Payer Address Payer Phone Subscriber Number Group Number Insured Name Patient Relationship to Insured Coverage Start Date Coverage End Date [employer] - Open Access [address] [place], [place] [id number] Melva Don Self - patient is the insured Medical (General) History Surgical History Surgery Date(Month/Year) Knee surgery; 2020-10-20 Lumbar Fusion; 2020-10-20 Sinus Surgery; 2020-10-20 Shoulder surgery; 2020-10-20
--- OUTSIDE RECORDS SUMMARY | 2025-05-30 18:59 | XMS_ITS | Encounter Summary ---
Author Organization [facility] [employer] Address [address] [facility] [address] [place] [address] Care Team Providers Care Vacuum Pan Operator Name Role Phone Stanley Arizmendi MD Primary Care Provider [phone] Alberto Perdomo MD Unavailable [phone] Renan Blackwood MD Unavailable [phone] Chad Junior MD Unavailable [phone] Tay Lopez MD Unavailable [phone] Myah Adams MD Unavailable Rojas Pelletier DO Unavailable Jak Ledezma MD Unavailable Alberto Perdomo MD Unavailable [phone] Encounter Details Date Type Department Care Team (Late st Contact Info) Description 10/23/2016 Orders Only [facility] Provider, MD Lorraine [address] [place] [address] Social History Tobacco Use Types Packs/Day Years Used Date Smoking Tobacco: Never Assessed Comments Unknown Sex and Gender Information Value Date Recorded Sex Assigned at Not on file Legal Sex Female 12:35 PM NET FISHER Gender Identity Not on file Sexual Orientation Straight 08/24/2019 7: 38 PM NET FISHER documented as of this encounter Functional Status documented as of this encounter Plan of Treatment Not on file documented as of this encounter Procedures Procedure Name Priority Date/Time Associated Diagnosis Comments CARDIOLOGY REPORT 10/23/2016 documented in this encounter Results * CARDIOLOGY REPORT (10/23/2016) Anatomical Region Laterality Modality Other Narrative 10/23/2016 Ordered by an unspecified provider. us Historical Provider CV CARDIAC SERVICES PROCE ROMAINE Final Result documented in this encounter Visit Diagnoses Not on filedocumented in this encounter Care Teams Vacuum Pan Operator Relationship Specialty Start Date End Date Stanley Arizmendi MD [address] [place] [address] PCP - General 02/10/13 Alberto Perdomo MD [address] [facility] [address] [place] [address] Referring Physician Psychiatry 08/29/20 Renan Blackwood MD [address] BOBBY Cabezas [facility] [address] [place] [address] Surgeon Orthopedic Surgery 08/29/20 Chad Junior MD [address] [facility] [address] [place] [address] Referring Physician Obstetrics and Gynecology 08/09/21 Tay Lopez MD [address] [facility] [address] [place] [address] Consulting Physician Rheumatology 08/09/21 Myah Adams MD [address] [facility] [address] [place] [address] Referring Physician Neurology 08/09/21 [place] [address] [facility] [address] [place] [id number] Consulting Physician Gastroenterology 08/09/21 [place] [address] [address] [facility] [address] [place] [address] Consulting Physician Critical Care Med 08/09/21 Alberto Perdomo MD [address] [facility] [address] [place] [address] Referring Physician Psychiatry 08/09/21 02/05/22 documented as of this encounter
[2025-05-30 19:02] VITALS: BP 134/86; PULSE 103; RESP 16; TEMP 36.4; O2SAT 98
--- NOTE | 2025-05-30 19:25 | ED.SKABFB ---
HPI - Skin/Abscess/Foreign Bdy General Chief complaint: Skin/Abscess/Foreign Body Stated complaint: Left finger infection Time Seen by Provider: 05/30/25 19:10 Source: patient and RN notes reviewed Mode of arrival: ambulatory Limitations: no limitations History of Present Illness HPI narrative: 45-year-old female presents Express Care complaining of possible infection left middle finger. Patient says she had a manicure to 4-5 days ago. Patient reports redness and swelling to the near the nail bed of her left middle finger. Patient has been trying [id number] bacitracin, Hibiclens, and washing the wound without improvement. Patient has any fevers, body aches, chills, hand dysfunction, numbness, tingling, any other symptoms. Patient has a is complex medical history. Related Data Home Medications ?Medication ?Instructions ?Recorded ?Confirmed ?Last Taken ?Type alprazolam 0.5 mg tablet (Xanax) 0.5 mg PO DAILY PRN 05/18/25 05/18/25 Unknown History bupropion HCl 450 mg 24 hr tablet, 450 mg PO QAM 05/18/25 05/18/25 Unknown History extended release cetirizine 10 mg tablet (Zyrtec) 40 mg PO DAILY 05/18/25 05/18/25 Unknown History clonidine HCl 0.1 mg tablet 0.1 mg PO TID 05/18/25 05/18/25 Unknown History diclofenac sodium 75 mg 75 mg PO BID 05/18/25 05/18/25 Unknown History tablet,delayed release famotidine 20 mg tablet 20 mg PO QHS 05/18/25 05/18/25 Unknown History folic acid 1 mg tablet 1 mg PO DAILY 05/18/25 05/18/25 Unknown History gabapentin 800 mg tablet 800 mg PO DAILY 05/18/25 05/18/25 Unknown History guanfacine 1 mg tablet 1 mg PO QHS 05/18/25 05/18/25 Unknown History hydroxychloroquine 400 mg tablet 400 mg PO DAILY 05/18/25 05/18/25 Unknown History leflunomide 10 mg tablet 10 mg PO DAILY 05/18/25 05/18/25 Unknown History methotrexate (PF) 10 mg/0.2 mL 50 mg subcut WEEKLY 05/18/25 05/18/25 Unknown History subcutaneous auto-injector mirtazapine 30 mg tablet 30 mg PO DAILY 05/18/25 05/18/25 Unknown History nifedipine 60 mg tablet,extended 60 mg PO DAILY 05/18/25 05/18/25 Unknown History release prednisolone 5 mg tablet 15 mg PO DAILY 05/18/25 05/18/25 Unknown History (Millipred) propranolol 10 mg tablet 10 mg PO BID 05/18/25 05/18/25 Unknown History pyridostigmine bromide 30 mg tablet 90 mg PO TID 05/18/25 05/18/25 Unknown History tramadol 50 mg tablet 50 mg PO TID PRN 05/18/25 05/18/25 Unknown History alprazolam 1 mg tablet mg 05/30/25 Unknown History bupropion HCl 150 mg tablet,12 hr mg PO 05/30/25 Unknown History sustained-release bupropion HCl 300 mg 24 hr tablet, mg PO 05/30/25 Unknown History extended release cyanocobalamin (vitamin B-12) mcg 05/30/25 Unknown History 1,000 mcg/mL injection solution gabapentin 100 mg capsule mg 05/30/25 Unknown History gabapentin 300 mg capsule mg 05/30/25 Unknown History hydroxychloroquine 200 mg tablet mg PO 05/30/25 Unknown History methotrexate sodium (PF) 25 mg/mL mg 05/30/25 Unknown History injection solution methylphenidate HCl 40 mg biphasic mg PO 05/30/25 Unknown History 50-50 capsule,extended release nifedipine 60 mg tablet,extended mg PO 05/30/25 Unknown History release 24 hr prednisone 5 mg tablet mg 05/30/25 Unknown History pyridostigmine bromide 60 mg tablet mg 05/30/25 Unknown History tacrolimus 0.1 % topical ointment topical 05/30/25 Unknown History Allergies Allergy/AdvReac Type Severity Reaction Status Date / Time Penicillins Allergy Mild Rash Verified 05/30/25 19:12 Sulfa (Sulfonamide Allergy Mild Anaphylactic Verified 05/30/25 19:12 Antibiotics) Shock clindamycin Allergy Unknown Rash Verified 05/30/25 19:12 vancomycin AdvReac Mild Redness of Verified 05/30/25 19:12 Skin Review of Systems Review of Systems: CONSTITUTIONAL: Denies fever, chills, or sweats. EYES: Denies visual changes, redness, or discharge. ENT: Denies rhinorrhea, congestion, sore throat, or otalgia. CARDIOVASCULAR: Denies chest pain, palpitations, or edema. RESPIRATORY: Denies cough or dyspnea. GASTROINTESTINAL: Denies abdominal pain, nausea, vomiting, or diarrhea. GENITOURINARY: Denies dysuria or hematuria. SKIN: Denies rash or itching. Positive for redness and swelling MUSCULOSKELETAL: Denies back pain, joint pain, or myalgia. NEUROLOGIC: Denies headache, numbness, or weakness. PSYCHIATRIC: Denies anxiety or depression. All other systems reviewed are negative, except as documented in HPI. [facility] Past Medical History Medical History Anxiety ADHD Acid reflux Esophageal stricture Raynaud disease POTS (postural orthostatic tachycardia syndrome) Sacroiliitis CRPS (complex regional pain syndrome type I) TBI (traumatic brain injury) Small fiber neuropathy Mixed connective tissue disease Ankylosing spondylitis Rheumatic arteritis Lupus Sjogren syndrome Surgical History Surgical History H/O anterior cruciate ligament surgery Fusion of lumbar spine SLAP lesion of right shoulder Social History Social History Smoking status: Never smoker Comments At the time of my signature, I reviewed and agree with the nursing past medical, surgical, social, and family history. There is no relevant family history pertinent to the patient complaint. Exam Narrative: GENERAL: This is a well-nourished, well-developed adult, in no apparent distress. They are non ill-appearing, nontoxic appearing. HEAD: normocephalic, atraumatic. EYES: Sclera clear/white. Conjunctiva normal. Vision is grossly intact. Extraocular movements intact EARS: External ears normal,Hearing grossly intact. NOSE: External nose normal THROAT: Mucous membranes moist NECK: Neck supple, CARDIOVASCULAR: Regular rate and rhythm RESPIRATORY: Respiratory rate normal, respiratory effort nonlabored, no respiratory distress SKIN: Left middle finger: Paronychia present, it is erythematous, no area of fluctuance, no induration, no exudate. Is mildly tender and warm to touch. No erythema swelling extending proximal. Normal range of motion. Capillary flow since 2 seconds. Sensation intact. Nail bed and plate are intact. Neurovascular status intact distally. NEURO: awake, alert, and oriented to person, place and time. There were no obvious focal neurologic abnormalities. EXTREMITIES: No joint tenderness, effusion, or edema noted. BACK: Nontender without deformity. Course Course Emergency Course: Portions of this record may have been created with voice recognition software Level of Care: Express Care Visit Vital Signs Vital signs: Vital Signs Temperature 97.6 F 05/30/25 19:02 Pulse Rate 103 H 05/30/25 19:02 Respiratory Rate 16 05/30/25 19:02 Blood Pressure 134/86 05/30/25 19:02 Pulse Oximetry 98 05/30/25 19:02 Oxygen Delivery Room Air 05/30/25 19:02 Temperature 97.6 F 05/30/25 19:02 Pulse Rate 103 H 05/30/25 19:02 Respiratory Rate 16 05/30/25 19:02 Blood Pressure 134/86 05/30/25 19:02 Pulse Oximetry 98 05/30/25 19:02 Oxygen Delivery Room Air 05/30/25 19:02 Reviewed MDM - Skin/Abscess/Foreign Bdy MDM Narrative Medical decision making narrative: Appears patient has paronychia that appears infected. No Evidence of abscess. Will treat with doxycycline. Discussed physical exam findings. Advised supportive measures and signs/symptoms to go to the ER. Pt is appropriate for outpt treatment and f/u. Differential Diagnosis Differential diagnosis: Likely cellulitis and other (Paronychia) Critical Care Time Critical Care Time Critical Care Time: No Discharge Plan Discharge Clinical Impression: Cellulitis Patient Disposition: Home Condition: Stable Instructions: Antibiotic Form, Cellulitis (ED) Additional Instructions: Clean with soap and water only; Avoid using alcohol and peroxide. Tylenol or Motrin as needed for pain. Follow instructions on the bottle. Take antibiotic until it's gone. Please schedule a follow up visit with your personal physician for further evaluation and treatment within 3-5days If you developed worsening redness, swelling, pain, fevers, body aches, chills, finger dysfunction, or any serious concerns please go to the ER immediately. Patient Language: Indonesian Prescriptions: New fluconazole 150 mg tablet 150 mg PO Q72H Qty: 2 0RF Rx Instructions: May repeat dose if symptoms persist after 72hours. doxycycline monohydrate 100 mg capsule 100 mg PO BID 7 Days Qty: 14 0RF No Action bupropion HCl 150 mg tablet sustained-release 12 hr PO alprazolam 1 mg tablet prednisone 5 mg tablet nifedipine 60 mg tablet extended release 24hr PO cyanocobalamin (vitamin B-12) 1,000 mcg/mL solution tacrolimus 0.1 % ointment TOPICAL pyridostigmine bromide 60 mg tablet gabapentin 300 mg capsule gabapentin 100 mg capsule hydroxychloroquine 200 mg tablet PO methotrexate sodium (PF) 25 mg/mL solution bupropion HCl 300 mg tablet extended release 24 hr PO methylphenidate HCl 40 mg capsule,ER biphasic 50-50 PO clonidine HCl 0.1 mg tablet 0.1 mg PO TID cetirizine [Zyrtec] 10 mg tablet 40 mg PO DAILY leflunomide 10 mg tablet 10 mg PO DAILY tramadol 50 mg tablet 50 mg PO TID PRN alprazolam [Xanax] 0.5 mg tablet 0.5 mg PO DAILY PRN propranolol 10 mg tablet 10 mg PO BID famotidine 20 mg tablet 20 mg PO QHS gabapentin 800 mg tablet 800 mg PO DAILY mirtazapine 30 mg tablet 30 mg PO DAILY guanfacine 1 mg tablet 1 mg PO QHS diclofenac sodium 75 mg tablet,delayed release (DR/EC) 75 mg PO BID folic acid 1 mg tablet 1 mg PO DAILY nifedipine 60 mg tablet extended release 60 mg PO DAILY prednisolone [Millipred] 5 mg tablet 15 mg PO DAILY bupropion HCl 450 mg tablet extended release 24 hr 450 mg PO QAM methotrexate (PF) 10 mg/0.2 mL auto-injector 50 mg subcut WEEKLY pyridostigmine bromide 30 mg tablet 90 mg PO TID hydroxychloroquine 400 mg tablet 400 mg PO DAILY Follow-up/Referrals: Kyleigh,MD Stanley [Primary Care Provider] Time of Disposition: 19:21
== END 2025-05-30 19:26 | disposition home or self-care (01) ==
PROVIDERS: PCP Internal Medicine Infectious Disease
DX: L03.012 Cellulitis of left finger (principal); K21.9 Gastro-esophageal reflux disease without esophagitis; G90.A Postural orthostatic tachycardia syndrome [POTS]; G90.50 Complex regional pain syndrome I, unspecified; M35.00 Sjogren syndrome, unspecified; M35.1 Other overlap syndromes; I73.00 Raynaud's syndrome without gangrene; F41.9 Anxiety disorder, unspecified; F90.9 Attention-deficit hyperactivity disorder, unspecified type
CPT/HCPCS: 99213; G0463